=== PATIENT | male | born 1980 | race Caucasian/White ===

== ENCOUNTER → 2019-01-08 | Outpatient (REF) | payer OTHER ==
[~2019-01-08] MED LIST: BACT800T5 PO
[2019-01-08 12:53] LABS: BASO % 0.8 % (0.0-1.0); EOS # 0.2 10^3/uL (0.0-0.50); EOS % 3.1 % (0.0-3.0); HEMATOCRIT 46.4 % (42.0-52.0); HEMOGLOBIN 15.6 g/dl (13.5-17.5); LYMPH # 1.7 10^3/uL (1.5-4.5); LYMPH % 33.5 % (24.0-44.0); MEAN CORPUSCULAR HEMOGLOBIN 31.1 pg (27.0-33.0); MEAN CORPUSCULAR HGB CONC 33.6 g/dl (32.0-36.5); MEAN CORPUSCULAR VOLUME 92.4 fl (80.0-96.0); MONO # 0.4 10^3/uL (0.0-0.8); MONO % 8.3 % (0.0-5.0); NEUTROPHILS # 2.8 10^3/uL (1.8-7.7); NEUTROPHILS % 54.1 % (36.0-66.0); PLATELET COUNT, AUTOMATED 225 10^3/uL (150-450); RED BLOOD COUNT 5.02 10^6/uL (4.30-6.10); WHITE BLOOD COUNT 5.2 10^3/uL (4.0-10.0)
[2019-01-08 13:07] LABS: ALBUMIN 4.1 GM/DL (3.2-5.2); ALT/SGPT 29 U/L (12-78); BILIRUBIN,TOTAL 0.3 MG/DL (0.2-1.0); BLOOD UREA NITROGEN 14 MG/DL (7-18); CALCIUM LEVEL 10.1 MG/DL (8.5-10.1); CARBON DIOXIDE LEVEL 29 MEQ/L (21-32); CHLORIDE LEVEL 107 MEQ/L (98-107); CHOLESTEROL LEVEL 191 MG/DL (<200); CHOLESTEROL RISK RATIO 3.897 (<5); CREATININE FOR GFR 1.22 MG/DL (0.70-1.30); GLOMERULAR FILTRATION RATE > 60.0 (>60); GLUCOSE, FASTING 102 MG/DL (70-100); HDL CHOLESTEROL 49 MG/DL (>40); LDL CHOLESTEROL 126 MG/DL (<100); NON-HDL-C 142 MG/DL; POTASSIUM SERUM 4.4 MEQ/L (3.5-5.1); SODIUM LEVEL 140 MEQ/L (136-145); TOTAL PROTEIN 7.1 GM/DL (6.4-8.2); TRIGLYCERIDES LEVEL 82 MG/DL (<150)
== END ==
LOC: M SFHCADAM 08:15
PROVIDERS: ATTEND Physician Assistant Medical
DX: Z13.220 Encounter for screening for lipoid disorders (principal); Z13.0 Encounter for screening for diseases of the blood and blood-forming organs and certain disorders involving the immune mechanism; R40.0 Somnolence

== ENCOUNTER → 2019-05-09 | Outpatient (CLI) | payer OTHER ==
--- NOTE | 2019-05-09 14:18 | REP ---
Right hand series: Four views. History: Right hand pain. Redness and swelling. 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 There is no evidence of fracture, subluxation, or soft tissue gas or foreign body. There is some dorsal soft tissue swelling. Impression: No acute bony abnormality. Electronically Signed by Juan Meza MD 05/09/2019 05:20 P
== END ==
LOC: M LRY 12:23
PROVIDERS: ATTEND Nurse Practitioner Family
DX: M79.641 Pain in right hand (principal)

== ENCOUNTER 2019-05-15 19:07 | Emergency (ER) | payer OTHER ==
[~2019-05-15] VITALS: Ht 172.7 cm; Wt 90.9 kg
[2019-05-15] MEDS ORDERED: BACT800T5 PO (19:12)
[2019-05-15] MEDS ORDERED: NS 1,000 ML IV ONE (22:00)
[2019-05-15 22:29] LABS: BASO # 0.1 10^3/uL (0.0-0.2); BASO % 0.8 % (0.0-1.0); EOS # 0.1 10^3/uL (0.0-0.5); EOS % 1.7 % (0.0-3.0); HEMATOCRIT 46.6 % (42.0-52.0); HEMOGLOBIN 15.3 g/dl (13.5-17.5); LYMPH # 1.9 10^3/uL (1.5-5.0); LYMPH % 29.2 % (24.0-44.0); MEAN CORPUSCULAR HEMOGLOBIN 29.9 pg (27.0-33.0); MEAN CORPUSCULAR HGB CONC 32.8 g/dl (32.0-36.5); MONO # 0.5 10^3/uL (0.0-0.8); MONO % 7.8 % (0.0-5.0); NEUTROPHILS # 3.9 10^3/uL (1.5-8.5); NEUTROPHILS % 60.3 % (36.0-66.0); PLATELET COUNT, AUTOMATED 252 10^3/uL (150-450); RED BLOOD COUNT 5.12 10^6/uL (4.30-6.10); WHITE BLOOD COUNT 6.5 10^3/uL (4.0-10.0)
[2019-05-15 22:53] LABS: BLOOD UREA NITROGEN 16 MG/DL (7-18); C REACTIVE PROTEIN QUANTITATIV < 0.30 MG/DL (0.00-0.30); CALCIUM LEVEL 10.1 MG/DL (8.5-10.1); CARBON DIOXIDE LEVEL 27 MEQ/L (21-32); CHLORIDE LEVEL 104 MEQ/L (98-107); CREATININE FOR GFR 1.31 MG/DL (0.70-1.30); GLOMERULAR FILTRATION RATE > 60.0 (>60); GLUCOSE, FASTING 94 MG/DL (70-100); POTASSIUM SERUM 4.2 MEQ/L (3.5-5.1); SODIUM LEVEL 138 MEQ/L (136-145)
--- NOTE | 2019-05-15 22:59 | REPVR ---
PROCEDURE INFORMATION: Exam: US Right Non-Vascular Joint or Other Extremity Structure, Limited Upper Extremity Exam date and time: 05/15/2019 10:29 PM Age: 38 years old Clinical history: Cellulitis; Hand; Right; Additional info: Hand swelling, tender TECHNIQUE: Imaging protocol: Right US Non-Vascular Joint or Other Extremity Structure. Limited exam of the upper extremity. COMPARISON: CR RIGHT HAND COMPLETE 05/09/2019 12:37 PM FINDINGS: Soft tissues: There is soft tissue edema and swelling in the posterior aspect of the right hand, but no drainable fluid collection is visualized in the right hand from the images obtained. IMPRESSION: 1. Soft tissue swelling and edema in the posterior aspect of the right hand, which may represent cellulitis. 2. No abscess visualized in the right hand. Electronically signed by: Ruslan Holloway On 05/15/2019 22:59:20 PM
[2019-05-15 23:07] LABS: ERYTHROCYTE SEDIMENTATION RATE 1 mm/hr (0-15)
[2019-05-16] MEDS ORDERED: cefTRIAXone SOD 1 GM in D5W MINI-BAG PLUS 50 ML IV ONE ×2
[2019-05-16 00:44] VITALS: BP 135/86
== END 2019-05-16 00:46 | disposition home or self-care (01) ==
LOC: M ED 19:07
DX: L03.113 Cellulitis of right upper limb (principal); Z86.61 Personal history of infections of the central nervous system
CPT/HCPCS: 76882; 80048; 83605; 85025; 85652; 86140; 87040; 96361; 96365; 99284; J0696

== ENCOUNTER → 2019-11-22 | Outpatient (REF) | payer OTHER | LOC: M SFHCADAM 09:30 | PROVIDERS: ATTEND Physician Assistant Medical | DX: I82.629 Acute embolism and thrombosis of deep veins of unspecified upper extremity (principal) ==

== ENCOUNTER → 2021-05-12 | Outpatient (CLI) | payer OTHER ==
--- NOTE | 2021-05-13 18:05 | SLEEPHOME ---
DATE: 05/12/2021 ORDERED BY: SERJIO Carroll Diagnostic home sleep testing was performed due to concern for the obstructive sleep apnea syndrome in this patient with a history of excessive somnolence and nonrestorative sleep. For testing, a [employer] T3 respiratory monitoring device was used. Continuous record was made of pulse, oxygen saturation, air flow, chest and abdominal strain, and body position. Seven hours and 9 minutes of data were reviewed. During the interval measurements there were 51 respiratory events identified of 10 seconds in duration or greater for a respiratory event index of 7.2. The events were primarily obstructive. Baseline pulse rate was 64 beats per minute. Pulse rate ranged 46 to 101. Baseline saturation was 93%. Saturations fell to 87%. Testing was performed in both the supine and nonsupine positions. IMPRESSION: Abnormal home sleep testing with repetitive respiratory events and oxygen desaturations to 87% with a respiratory event index of 7.2 is consistent with the obstructive sleep apnea syndrome. RECOMMENDATION: The patient should be encouraged to undergo a formal sleep evaluation. cc: Tammy Last PA-C
== END ==
LOC: M SLEEP HO 12:19
PROVIDERS: ATTEND Physician Assistant
DX: R40.0 Somnolence (principal)